=== PATIENT | male | born 2000 | race Caucasian/White ===

== ENCOUNTER 2021-08-13 12:48 | Emergency (ER) | payer SELFPAY ==
[~2021-08-13] VITALS: Ht 193 cm; Wt 131.5 kg
[2021-08-13] MEDS ORDERED: AMOXICILLIN500 M2 PO (15:34)
[2021-08-13] MEDS ORDERED: MEDROL DOSEPAK4 MG PO (15:34)
== END 2021-08-13 15:36 | disposition home or self-care (01) ==
LOC: ED 12:48
DX: M54.16 Radiculopathy, lumbar region (principal)